=== PATIENT | male | born 1990 | race Caucasian/White ===

== ENCOUNTER 2016-02-24 12:38 | Emergency (ER) | payer OTHER ==
[2016-02-24 13:22] VITALS: BP 109/70
--- NOTE | 2016-02-24 13:30 | UC ---
Lower Extremity/Ankle HPI - HPI Summary HPI Summary: complaint of pain in all of his teeth in left upper and lower jaw that started approx 2 days ago pain is raditing into his left ear and neck popped a "cyst" in lower left jaw yesterday headache for several days not tkaing any medication for pain at this time states ibuprofen doesn't work for him denies fever and chills - History of Current Complaint Chief Complaint: UCDentalProblem Stated Complaint: DENTAL PAIN HEADACHE Time Seen by Provider: 02/24/16 13:23 - Allergies/Home Medications Allergies/Adverse Reactions: Allergies Allergy/AdvReac Type Severity Reaction Status Date / Time DEODORANTS Allergy Rash And Uncoded 02/24/16 13:18 Itching ONIONS Allergy THROAT Uncoded 02/24/16 13:18 ITCHING AND SWELLING PMH/Surg Hx/FS Hx/Imm Hx Previously Healthy: Yes Endocrine History Of: Denies: Diabetes Cardiovascular History Of: Denies: Hypertension, Pacemaker/ICD Respiratory History Of: Reports: Pneumonia - said had pneumonia when a child GI/ History Of: Denies: Renal Disease Psychological History Of: Reports: Anxiety, Depression Denies: Bipolar Disorder - Pt says was Dx bipolar in the past - Surgical History Surgical History: None - Family History Known Family History: Negative: Cardiac Disease, Hypertension, Diabetes - Social History Occupation: Unemployed Lives: With Family Alcohol Use: Daily Alcohol Amount: usually 1-2 beers/ mth. lately, 3-4 beers/day last 4 days, however Substance Use Type: Marijuana Substance Use Comment - Amount & Last Used: has 1-2 joints per day when available. Claims has not smoked MJ in last mon Smoking Status (MU): Current Every Day Smoker Type: Cigarettes Amount Used/How Often: 1/2 PPD Have You Smoked in the Last Year: Yes Household Exposure Type: Cigarettes Cessation Counseling: Patient Advised to Stop - Immunization History Most Recent Influenza Vaccination: "years ago" Most Recent Tetanus Shot: "when I was a child" Most Recent Pneumonia Vaccination: says never Review of Systems Constitutional: Negative, Fever Eyes: Negative ENT: Dental Pain Respiratory: Negative Cardiovascular: Negative Gastrointestinal: Negative Genitourinary: Negative Motor: Negative Neurovascular: Negative Musculoskeletal: Negative Neurological: Negative Psychological: Negative All Other Systems Reviewed And Are Negative: Yes Physical Exam Triage Information Reviewed: Yes Appearance: No Pain Distress, Well-Nourished Vital Signs: Initial Vital Signs Temp 98.8 F 02/24/16 13:18 Pulse 59 02/24/16 13:18 Resp 16 02/24/16 13:18 BP 109/70 02/24/16 13:18 Pulse Ox 100 02/24/16 13:18 Vital Signs Reviewed: Yes Eyes: Positive: Conjunctiva Clear ENT: Positive: Pharynx normal, TMs normal. Negative: Nasal congestion Dental: Positive: Gross Decay/Caries @ - throughout 17,18,19 with edema and erythema around bases Neck: Positive: No Lymphadenopathy Respiratory: Positive: Lungs clear, Normal breath sounds, No respiratory distress Cardiovascular: Positive: RRR, No Murmur, Pulses Normal Abdomen Description: Positive: Nontender, Soft Bowel Sounds: Positive: Present Musculoskeletal: Positive: No Edema Psychological Exam: Normal Skin Exam: Normal Lower Extremity Course/Dx - Differential Dx/Diagnosis Differential Diagnosis/HQI/PQRI: Other - dental abscess, dental caries, fractured tooth Provider Diagnoses: dental abscess Discharge - Discharge Plan Condition: Stable Disposition: HOME Prescriptions: Amoxicillin/Clavulanate TAB* [Augmentin TAB 875*] 875 mg PO BID #20 tab Naproxen TAB* [Naprosyn TAB*] 500 mg PO Q12H PRN #30 tab PRN Reason: Pain (Dental) Patient Education Materials: Dental Abscess (ED) Referrals: [facility] [Outside] Additional Instructions: Please take antibiotic as directed. call dentist so you can have your teeth removed or you will continue to have dental pain and abscesses in your mouth Increase fluids and rest Take acetaminophen or ibuprofen for fever or pain Please review your discharge instructions. If your symptoms do not improve please call your primary care provider or return to urgent care. DENTAL PAIN What Causes Dental Pain? Cavities (tooth decay) are the most common cause of dental pain. Cavities usually happen because of poor oral hygiene, causing bacteria to build up and form plaque. Plaque breaks down the tooth enamel and leads to cavities. If untreated, cavities can lead to tooth abscesses, gum disease, and, finally, loss of the tooth. Prevention of tooth decay is the best way to avoid toothaches. Symptoms Might Include: Aching or sharp pain in the tooth Sensitivity to hot or cold foods and fluids Pain, redness or swelling of the gums Swelling of the face or jaw Treatment Recommendations: Take acetaminophen (Tylenol?) or ibuprofen (Motrin, Advil?) for pain unless you have had a problem with one of the medicines in the past. The healthcare provider may have prescribed an antibiotic medicine. The medicine should be taken until it is completely gone, even if you are feeling better. If you stop taking the medicine early, the infection may not be completely gone, and the medication may not work the next time. If you are given a prescription for pain medicine (narcotics), do not drink, drive, or operate any kind of dangerous machinery while taking that medicine. Do not place pain-killing tablets on any aching tooth or gum it can cause severe booker on the gum. Call Your Doctor or Return Here IF: You start to have severe pain. You start to have swelling in your face or neck. You start to a have fever. You start to have difficulty speaking or swallowing. You have any other new symptoms that worry you.
== END 2016-02-24 14:00 | disposition home or self-care (01) ==
LOC: UCEAST 12:38
DX: J06.9 Acute upper respiratory infection, unspecified (principal); H69.90 Unspecified Eustachian tube disorder, unspecified ear
CPT/HCPCS: 99212; G0463

== ENCOUNTER 2017-03-19 21:47 | Emergency (ER) | payer OTHER ==
[2017-03-19 22:45] LABS: Hematocrit 47 % (42-52); Hemoglobin 16.2 g/dl (14.0-18.0); Mean Corpuscular HGB Conc 35 g/dl (31-36); Mean Corpuscular Hemoglobin 30 pg (27-31); Mean Corpuscular Volume 88 fL (80-94); Mean Platelet Volume 8 um3 (7.4-10.4); Platelet Count 217 10^3/ul (150-450); Red Blood Count 5.33 10^6/ul (4.0-5.4); Red Cell Distribution Width 13 % (10.5-15); White Blood Count 11.7 10^3/ul (3.5-10.8)
[2017-03-19 22:53] LABS: ABS Basophils 0 10^3/ul (0-0.2); ABS Eosinophils 0 10^3/ul (0-0.6); ABS Monocytes 0.7 10^3/ul (0-0.8); ABS Neutrophils 10.3 10^3/ul (1.5-7.7); ABS Nucleated RBC 0 10^3/ul; Eosinophil % 0.1 % (0-6); Lymphocyte % 8.1 % (25-47); Nucleated Red Blood Cells % 0
--- NOTE | 2017-03-19 23:25 | ED ---
Syncope/Near Syncope - HPI Summary HPI Summary: 27-year-old male presents with syncopal episode tonight. He states he was outside and had intense back pain and then passed out. He states he has not seen anything today. He states after passing out he developed chest pain and abdominal pain. He states the abdominal pain is generalized. He denies any nausea vomiting or diarrhea. He admits to a cough. He denies any bloody stools. He states the chest pain has been resolving. He denies any shortness of breath. He denies any family history of cardiac disease. He has multiple psych psych diagnosis. He has never passed out before. He is a smoker. He denies any fever. States the chest pain is in the center of the chest and is sharp. He states he has a history of back pain but said over the past day his back pain has intensified. He denies any numbness or tingling. He denies any pain down the leg. Denies any loss of bowel or bladder. He denies any saddle anesthesia. He has not taken anything for his pain. He has some superficial cuts on his left arm but he denies any suicidal or homicidal ideation. He states he believed he passed out due to pain. - History Of Current Complaint Chief Complaint: EDBackInjuryPain Time Seen by Provider: 03/19/17 22:29 - Allergies/Home Medications Allergies/Adverse Reactions: Allergies Allergy/AdvReac Type Severity Reaction Status Date / Time DEODORANTS Allergy Rash And Uncoded 02/24/16 13:18 Itching ONIONS Allergy THROAT Uncoded 02/24/16 13:18 ITCHING AND SWELLING PMH/Surg Hx/FS Hx/Imm Hx Endocrine/Hematology History: Denies: Hx Diabetes Cardiovascular History: Denies: Hx Hypertension, Hx Pacemaker/ICD Respiratory History: Reports: Hx Pneumonia - said had pneumonia when a child History: Denies: Hx Renal Disease Sensory History: Denies: Hx Hearing Aid, Hx Hearing Problem - states some hearing loss left ear due to childhood infection, Other Sensory Impairments Opthamlomology History: Denies: Other Sensory Impairments Psychiatric History: Reports: Hx Anxiety, Hx Depression, Hx Community Mental Health Tx, Hx Suicide Attempt, Other Psychiatric Issues/Disorders - 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 lately, 3-4 beers/day last 4 days, however Substance Use Type: Reports: Marijuana Substance Use Comment - Amount & Last Used: has 1-2 joints per day when available. Claims has not smoked MJ in last mon Smoking Status (MU): Current Every Day Smoker Type: Cigarettes Amount Used/How Often: 1/2 PPD Have You Smoked in the Last Year: Yes Review of Systems Negative: Fever Positive: Chest Pain Positive: Cough Positive: Abdominal Pain All Other Systems Reviewed And Are Negative: Yes Physical Exam Triage Information Reviewed: Yes Vital Signs On Initial Exam: Initial Vitals Temp Pulse Resp BP Pulse Ox 98.8 F 89 18 123/78 98 03/19/17 21:54 03/19/17 21:54 03/19/17 21:54 03/19/17 21:54 03/19/17 21:54 Vital Signs Reviewed: Yes Appearance: Positive: Well-Appearing Skin: Positive: Warm, Dry Head/Face: Positive: Normal Head/Face Inspection Eyes: Positive: Normal, EOMI, MANOJ, Conjunctiva Clear ENT: Positive: Normal ENT inspection, Pharynx normal, TMs normal Respiratory/Lung Sounds: Positive: Clear to Auscultation, Breath Sounds Present , Other - reproducible chest pain Cardiovascular: Positive: Normal, RRR Abdomen Description: Positive: Soft, Other: - mild diffuse tenderness Bowel Sounds: Positive: Present Musculoskeletal: Positive: Strength/ROM Intact - back, Other - midline tenderness lower back, neg SLR, Neurological: Positive: Sensory/Motor Intact, Alert, Oriented to Person Place, Time, CN Intact II-III - [place] Coma Scale Best Eye Response: 4 - Spontaneous Best Motor Response: 6 - Obeys Commands Best Verbal Response: 5 - Oriented Coma Scale Total: 15 Diagnostics - Vital Signs Vital Signs Temp Pulse Resp BP Pulse Ox 03/19/17 22:33 98 03/19/17 21:54 98.8 F 89 18 123/78 98 - Laboratory Lab Results: Lab Results 01/27/18 01/27/18 01/27/18 Range/Units 22:27 22:27 22:27 WBC 11.7 H (3.5-10.8) 10^3/ul RBC 5.33 (4.0-5.4) 10^6/ul Hgb 16.2 (14.0-18.0) g/dl Hct 47 (42-52) % MCV 88 (80-94) fL MCH 30 (27-31) pg MCHC 35 (31-36) g/dl RDW 13 (10.5-15) % Plt Count 217 (150-450) 10^3/ul MPV 8 (7.4-10.4) um3 Neut % (Auto) 86.0 H (38-83) % Lymph % (Auto) 8.1 L (25-47) % Mckinley % (Auto) 5.5 (1-9) % Eos % (Auto) 0.1 (0-6) % Baso % (Auto) 0.3 (0-2) % Absolute Neuts (auto) 10.3 H (1.5-7.7) 10^3/ul Absolute Lymphs (auto) 1.0 (1.0-4.8) 10^3/ul Absolute Monos (auto) 0.7 (0-0.8) 10^3/ul Absolute Eos (auto) 0 (0-0.6) 10^3/ul Absolute Basos (auto) 0 (0-0.2) 10^3/ul Absolute Nucleated RBC 0 10^3/ul Nucleated RBC % 0 D-Dimer, Quantitative (Less Than 230) ng/mL Sodium 137 (133-145) mmol/L Potassium 3.7 (3.5-5.0) mmol/L Chloride 103 (101-111) mmol/L Carbon Dioxide 25 (22-32) mmol/L Anion Gap 9 (2-11) mmol/L BUN 12 (6-24) mg/dL Creatinine 1.02 (0.67-1.17) mg/dL Est GFR ( Amer) 111.8 (>60) Est GFR (Non-Af Amer) 87.0 (>60) BUN/Creatinine Ratio 11.8 (8-20) Glucose 92 (70-100) mg/dL Lactic Acid 0.9 (0.5-2.0) mmol/L Calcium 9.5 (8.6-10.3) mg/dL Magnesium 2.3 (1.9-2.7) mg/dL Total Bilirubin 0.50 (0.2-1.0) mg/dL AST 23 (13-39) U/L ALT 33 (7-52) U/L Alkaline Phosphatase 90 (34-104) U/L Troponin I 0.00 (<0.04) ng/mL Total Protein 7.3 (6.4-8.9) g/dL Albumin 4.5 (3.2-5.2) g/dL Globulin 2.8 (2-4) g/dL Albumin/Globulin Ratio 1.6 (1-3) TSH Pending 03/19/17 Range/Units 22:27 WBC (3.5-10.8) 10^3/ul RBC (4.0-5.4) 10^6/ul Hgb (14.0-18.0) g/dl Hct (42-52) % MCV (80-94) fL MCH (27-31) pg MCHC (31-36) g/dl RDW (10.5-15) % Plt Count (150-450) 10^3/ul MPV (7.4-10.4) um3 Neut % (Auto) (38-83) % Lymph % (Auto) (25-47) % Mckinley % (Auto) (1-9) % Eos % (Auto) (0-6) % Baso % (Auto) (0-2) % Absolute Neuts (auto) (1.5-7.7) 10^3/ul Absolute Lymphs (auto) (1.0-4.8) 10^3/ul Absolute Monos (auto) (0-0.8) 10^3/ul Absolute Eos (auto) (0-0.6) 10^3/ul Absolute Basos (auto) (0-0.2) 10^3/ul Absolute Nucleated RBC 10^3/ul Nucleated RBC % D-Dimer, Quantitative < 200 (Less Than 230) ng/mL Sodium (133-145) mmol/L Potassium (3.5-5.0) mmol/L Chloride (101-111) mmol/L Carbon Dioxide (22-32) mmol/L Anion Gap (2-11) mmol/L BUN (6-24) mg/dL Creatinine (0.67-1.17) mg/dL Est GFR ( Amer) (>60) Est GFR (Non-Af Amer) (>60) BUN/Creatinine Ratio (8-20) Glucose (70-100) mg/dL Lactic Acid (0.5-2.0) mmol/L Calcium (8.6-10.3) mg/dL Magnesium (1.9-2.7) mg/dL Total Bilirubin (0.2-1.0) mg/dL AST (13-39) U/L ALT (7-52) U/L Alkaline Phosphatase (34-104) U/L Troponin I (<0.04) ng/mL Total Protein (6.4-8.9) g/dL Albumin (3.2-5.2) g/dL Globulin (2-4) g/dL Albumin/Globulin Ratio (1-3) TSH Result Diagrams: 03/19/17 22:27 03/19/17 22:27 Lab Statement: Any lab studies that have been ordered have been reviewed, and results considered in the medical decision making process. - CT back CT Interpretation: No Acute Changes - stable left lateral L5/S1 disc hernation which may be minimial abutting the descening left S1 nerve root CT Interpretation Completed By: Radiologist - EKG No standard instances Cardiac Rate: NL EKG Rhythm: Sinus Rhythm EKG Interpretation: sinus rythmn, early repolarization Course/Dx Course Of Treatment: 27-year-old male presents with syncopal episode tonight. He states he was outside and had intense back pain and then passed out. He states he has not seen anything today. He states after passing out he developed chest pain and abdominal pain. He states the abdominal pain is generalized. He denies any nausea vomiting or diarrhea. He denies any bloody stools. He states the chest pain has been resolving. He denies any shortness of breath. He denies any family history of cardiac disease. He has multiple psych psych diagnosis. He has never passed out before. He is a smoker. He denies any fever. States the chest pain is in the center of the chest and is sharp. He states he has a history of back pain but said over the past day his back pain has intensified. He denies any numbness or tingling. He denies any pain down the leg. Denies any loss of bowel or bladder. He denies any saddle anesthesia. He has not taken anything for his pain. He has some superficial cuts on his left arm but he denies any suicidal or homicidal ideation. He states he believed he passed out due to pain. On exam has reproducible chest pain. Lungs clear to auscultation. Back midline tenderness in lower back negative straight leg raise. Neurovascularly intact. EKG normal sinus rhythm. Troponin negative. D-dimer negative. White blood cell 11. flu neg. discussed chest pain and abdominal pain could be viral illness. will treat back pain with lidocaine patch. will have follow up with primary within 5 days. patient understand and agrees with plan. - Diagnoses Differential Diagnosis/HQI/PQRI: Positive: Hypoglycemia, Pulmonary Embolism, Vasovagal Episode Provider Diagnoses: Syncope, Back pain Discharge - Discharge Plan Condition: Good Disposition: HOME Prescriptions: Lidocaine PATCH 5%* [Lidoderm 5% Patch*] 1 patch TRANSDERM DAILY #5 patch Patient Education Materials: Syncope (ED), Back Pain (ED) Referrals: Joe Rasmussen DO [Primary Care Provider] - Additional Instructions: Apply lidocaine patches to area for up to 12 hours in one 24 hour period Use Tylenol for pain every 6 hours ice/heat area, move as much as possible Eat and drink throughout the day Follow up with primary within 5 days Return to ED if develop any new or worsening symptoms
[2017-03-20] MEDS ORDERED: Lidocaine PATCH 5%* 1 PATCH TRANSDERM ONE (00:24)
[2017-03-20 00:59] VITALS: BP 130/72
--- NOTE | 2017-03-20 07:52 | RAD ---
INDICATION: 27-year-old with back pain. History of degenerative disc disease L5-S1 ED request for CT of the lumbar spine. COMPARISON: Right lumbar spine September 29, 2015 TECHNIQUE: Noncontrast axial source images was performed from the thoracolumbar junction to the sacrum. Coronal and and sagittal reformatted images were generated. FINDINGS: Vertebrae: There is no fracture or acute focal bony lesion. Alignment: The lumbar vertebrae are normally aligned. Central Canal: The CT suggests a small left lateral disc herniation perhaps abutting the left S1 nerve root and better identified on the earlier MRI. There are no other identifiable CT abnormalities of the central canal or foramina. MR imaging is a more sensitive method to evaluate the canal and foramina. Intervertebral disc spaces: The disc spaces are maintained. Soft tissues: The paravertebral soft tissues are normal. Other: None IMPRESSION: STABLE SMALL LEFT LATERAL L5-S1 DISC HERNIATION.
== END 2017-03-20 00:57 | disposition home or self-care (01) ==
LOC: ED 21:47
DX: R55 Syncope and collapse (principal); R07.9 Chest pain, unspecified; R05 Cough; F17.210 Nicotine dependence, cigarettes, uncomplicated; R10.9 Unspecified abdominal pain; M54.9 Dorsalgia, unspecified
CPT/HCPCS: 36415; 72131; 80053; 83605; 83735; 84443; 84484; 85025; 85379; 87502; 93005; 99283; A9270-GY

== ENCOUNTER 2017-07-22 11:48 | Emergency (ER) | payer OTHER ==
[2017-07-22 13:27] LABS: ABS Basophils 0.1 10^3/ul (0-0.2); ABS Eosinophils 0.1 10^3/ul (0-0.6); ABS Lymphocytes 1.6 10^3/ul (1.0-4.8); ABS Monocytes 0.6 10^3/ul (0-0.8); ABS Neutrophils 4.3 10^3/ul (1.5-7.7); ABS Nucleated RBC 0 10^3/ul; Eosinophil % 1.4 % (0-6); Hematocrit 46 % (42-52); Hemoglobin 15.8 g/dl (14.0-18.0); Lymphocyte % 23.5 % (25-47); Mean Corpuscular HGB Conc 35 g/dl (31-36); Mean Corpuscular Hemoglobin 30 pg (27-31); Mean Corpuscular Volume 87 fL (80-94); Mean Platelet Volume 8.3 um3 (7.4-10.4); Nucleated Red Blood Cells % 0.1; Platelet Count 241 10^3/ul (150-450); Red Blood Count 5.26 10^6/ul (4.0-5.4); Red Cell Distribution Width 13 % (10.5-15); White Blood Count 6.7 10^3/ul (3.5-10.8)
[2017-07-22 13:51] LABS: EGFR Non-African American 93.3 (>60)
[2017-07-22 15:30] LABS: Urine Appearance Clear; Urine Blood Negative (Negative); Urine Color Yellow; Urine Ketones Negative (Negative); Urine Protein Negative (Negative); Urine Specific Gravity 1.017 (1.010-1.030); Urine Urobilinogen Negative (Negative)
[2017-07-22 16:07] VITALS: BP 129/70
--- NOTE | 2017-07-22 18:38 | ED ---
Aydee Odonnell Emily, scribed for Michael Presley MD on 07/22/17 at 1310 . Abdominal Pain/Male - HPI Summary HPI Summary: This patient is a 27 year old M presenting to [facility] accompanied by family with a chief complaint of LLQ abd pain radiating to the back that began yesterday. Pt reports the pain beginning suddenly after eating a hamburger. The patient rates the pain 3/10 in severity. Symptoms aggravated by movement. Symptoms alleviated by nothing. Patient denies urinary symptoms and nausea. - History of Current Complaint Chief Complaint: EDAbdPain Stated Complaint: ABD/BACK PAIN Time Seen by Provider: 07/22/17 12:22 Hx Obtained From: Patient Onset/Duration: Sudden Onset, Lasting Days, Still Present Timing: Constant Severity Initially: Mild Severity Currently: Mild Pain Intensity: 3 Pain Scale Used: 0-10 Numeric Location: Discrete At: LLQ Radiates: Yes Radiates to: Back Aggravating Factor(s): Nothing, Movement Alleviating Factor(s): Nothing Associated Signs And Symptoms: Positive: Other - Negative urinary symptoms. Negative: Nausea - Allergies/Home Medications Allergies/Adverse Reactions: Allergies Allergy/AdvReac Type Severity Reaction Status Date / Time DEODORANTS Allergy Rash And Uncoded 07/22/17 12:04 Itching ONIONS Allergy THROAT Uncoded 07/22/17 12:04 ITCHING AND SWELLING Home Medications: Home Medications NK [No Home Medications Reported] 07/22/17 [History Confirmed 07/22/17] PMH/Surg Hx/FS Hx/Imm Hx Previously Healthy: No Endocrine/Hematology History: Denies: Hx Diabetes Cardiovascular History: Denies: Hx Hypertension, Hx Pacemaker/ICD Respiratory History: Reports: Hx Pneumonia - said had pneumonia when a child History: Denies: Hx Renal Disease Sensory History: Denies: Hx Hearing Aid, Hx Hearing Problem - states some hearing loss left ear due to childhood infection, Other Sensory Impairments Opthamlomology History: Denies: Other Sensory Impairments Psychiatric History: Reports: Hx Anxiety, Hx Depression, Hx Community Mental Health Tx, Hx Suicide Attempt, Other Psychiatric Issues/Disorders - 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 lately, 3-4 beers/day last 4 days, however Substance Use Type: Reports: Marijuana Substance Use Comment - Amount & Last Used: has 1-2 joints per day when available. Claims has not smoked MJ in last mon Smoking Status (MU): Current Every Day Smoker Type: Cigarettes Amount Used/How Often: 1/2 PPD Have You Smoked in the Last Year: Yes Review of Systems Positive: Abdominal Pain. Negative: Nausea Positive: no symptoms reported All Other Systems Reviewed And Are Negative: Yes Physical Exam - Summary Physical Exam Summary: Appearance: The patient is well-nourished in no acute distress and in no acute pain. Skin: The skin is warm and dry and skin color reflects adequate perfusion. HEENT: The head is normocephalic and atraumatic. The pupils are equal and reactive. The conjunctivae are clear and without drainage. Nares are patent and without drainage. Mouth reveals moist mucous membranes and the throat is without erythema and exudate. The external ears are intact. The ear canals are patent and without drainage. The tympanic membranes are intact. Dental: Poor dentition. Neck: the neck is supple with full range of motion and non-tender. There are no carotid bruits. There is no neck vein distension. Respiratory: Chest is non-tender. Lungs are clear to auscultation and breath sounds are symmetrical and equal. Cardiovascular: Heart is regular rate and rhythm. There is no murmur or rub auscultated. There is no peripheral edema and pulses are symmetrical and equal. Abdomen: The abdomen is soft. Diffuse lower abdominal tenderness. There are normal bowel sounds heard in all four quadrants and there is no organomegaly palpated. Musculoskeletal: There is no back tenderness noted. Extremities are non-tender with full range of motion. There is good capillary refill. There is no peripheral edema or calf tenderness elicited. Neurological: Patient is alert and oriented to person, place and time. The patient has symmetrical motor strength in all four extremities. Cranial nerves are grossly intact. Deep tendon reflexes are symmetrical and equal in all four extremities. Psychiatric: The patient has an appropriate affect and does not exhibit any anxiety or depression. Triage Information Reviewed: Yes Vital Signs On Initial Exam: Initial Vitals Temp Pulse Resp BP Pulse Ox 98.1 F 69 12 127/64 98 07/22/17 11:58 07/22/17 11:58 07/22/17 11:58 07/22/17 11:58 07/22/17 11:58 Vital Signs Reviewed: Yes Diagnostics - Vital Signs Vital Signs Temp Pulse Resp BP Pulse Ox 07/22/17 11:58 98.1 F 69 12 127/64 98 - Laboratory Lab Results: Lab Results 07/22/17 07/22/17 07/22/17 Range/Units 13:00 13:00 13:00 WBC 6.7 (3.5-10.8) 10^3/ul RBC 5.26 (4.0-5.4) 10^6/ul Hgb 15.8 (14.0-18.0) g/dl Hct 46 (42-52) % MCV 87 (80-94) fL MCH 30 (27-31) pg MCHC 35 (31-36) g/dl RDW 13 (10.5-15) % Plt Count 241 (150-450) 10^3/ul MPV 8.3 (7.4-10.4) um3 Neut % (Auto) 65.1 (38-83) % Lymph % (Auto) 23.5 L (25-47) % Dickenson % (Auto) 8.9 H (0-7) % Eos % (Auto) 1.4 (0-6) % Baso % (Auto) 1.1 (0-2) % Absolute Neuts (auto) 4.3 (1.5-7.7) 10^3/ul Absolute Lymphs (auto) 1.6 (1.0-4.8) 10^3/ul Absolute Monos (auto) 0.6 (0-0.8) 10^3/ul Absolute Eos (auto) 0.1 (0-0.6) 10^3/ul Absolute Basos (auto) 0.1 (0-0.2) 10^3/ul Absolute Nucleated RBC 0 10^3/ul Nucleated RBC % 0.1 Sodium 141 (139-145) mmol/L Potassium 3.5 (3.5-5.0) mmol/L Chloride 107 (101-111) mmol/L Carbon Dioxide 26 (22-32) mmol/L Anion Gap 8 (2-11) mmol/L BUN 8 (6-24) mg/dL Creatinine 0.96 (0.67-1.17) mg/dL Est GFR ( Amer) 119.9 (>60) Est GFR (Non-Af Amer) 93.3 (>60) BUN/Creatinine Ratio 8.3 (8-20) Glucose 92 (70-100) mg/dL Lactic Acid 1.0 (0.5-2.0) mmol/L Calcium 9.3 (8.6-10.3) mg/dL Total Bilirubin 0.50 (0.2-1.0) mg/dL AST 23 (13-39) U/L ALT 27 (7-52) U/L Alkaline Phosphatase 81 (34-104) U/L C-Reactive Protein 4.88 (< 5.00) mg/L Total Protein 7.0 (6.4-8.9) g/dL Albumin 4.3 (3.2-5.2) g/dL Globulin 2.7 (2-4) g/dL Albumin/Globulin Ratio 1.6 (1-3) Lipase 31 (11.0-82.0) U/L Urine Color Urine Appearance Urine pH (5-9) Ur Specific [place] (1.010-1.030) Urine Protein (Negative) Urine Ketones (Negative) Urine Blood (Negative) Urine Nitrate (Negative) Urine Bilirubin (Negative) Urine Urobilinogen (Negative) Ur Leukocyte Esterase (Negative) Urine Glucose (Negative) 07/22/17 Range/Units 15:18 WBC (3.5-10.8) 10^3/ul RBC (4.0-5.4) 10^6/ul Hgb (14.0-18.0) g/dl Hct (42-52) % MCV (80-94) fL MCH (27-31) pg MCHC (31-36) g/dl RDW (10.5-15) % Plt Count (150-450) 10^3/ul MPV (7.4-10.4) um3 Neut % (Auto) (38-83) % Lymph % (Auto) (25-47) % Dickenson % (Auto) (0-7) % Eos % (Auto) (0-6) % Baso % (Auto) (0-2) % Absolute Neuts (auto) (1.5-7.7) 10^3/ul Absolute Lymphs (auto) (1.0-4.8) 10^3/ul Absolute Monos (auto) (0-0.8) 10^3/ul Absolute Eos (auto) (0-0.6) 10^3/ul Absolute Basos (auto) (0-0.2) 10^3/ul Absolute Nucleated RBC 10^3/ul Nucleated RBC % Sodium (139-145) mmol/L Potassium (3.5-5.0) mmol/L Chloride (101-111) mmol/L Carbon Dioxide (22-32) mmol/L Anion Gap (2-11) mmol/L BUN (6-24) mg/dL Creatinine (0.67-1.17) mg/dL Est GFR ( Amer) (>60) Est GFR (Non-Af Amer) (>60) BUN/Creatinine Ratio (8-20) Glucose (70-100) mg/dL Lactic Acid (0.5-2.0) mmol/L Calcium (8.6-10.3) mg/dL Total Bilirubin (0.2-1.0) mg/dL AST (13-39) U/L ALT (7-52) U/L Alkaline Phosphatase (34-104) U/L C-Reactive Protein (< 5.00) mg/L Total Protein (6.4-8.9) g/dL Albumin (3.2-5.2) g/dL Globulin (2-4) g/dL Albumin/Globulin Ratio (1-3) Lipase (11.0-82.0) U/L Urine Color Yellow Urine Appearance Clear Urine pH 6.0 (5-9) Ur Specific [place] 1.017 (1.010-1.030) Urine Protein Negative (Negative) Urine Ketones Negative (Negative) Urine Blood Negative (Negative) Urine Nitrate Negative (Negative) Urine Bilirubin Negative (Negative) Urine Urobilinogen Negative (Negative) Ur Leukocyte Esterase Negative (Negative) Urine Glucose Negative (Negative) Result Diagrams: 07/22/17 13:00 07/22/17 13:00 Lab Statement: Any lab studies that have been ordered have been reviewed, and results considered in the medical decision making process. Re-Evaluation - Re-Evaluation First Eval Re-Evaluation Time: 16:17 Change: Improved Abdominal Pain Fem Course/Dx - Course Course Of Treatment: On arrival Mr. Omer complained of low abdominal pain and was mildly tender in his bilateral lower quadrants. He essentially had no other symptomatology or signs and labs were obtained which were negative for any leukocytosis or other abnormality. He felt much improved at that point and he was given the option of getting a CT scan at this time or going home and treating this conservatively with observation. He chose to go home at this time and will return if he has any further symptoms or any increase in his pain. - Diagnoses Provider Diagnoses: Abdominal pain Discharge - Sign-Out/Discharge Documenting (check all that apply): Discharge/Admit/Transfer - Discharge home - Discharge Plan Condition: Stable Disposition: HOME Patient Education Materials: Acute Abdominal Pain (ED) Referrals: Joe Rasmussen DO [Primary Care Provider] - 3 Days Additional Instructions: RETURN TO THE EMERGENCY DEPARTMENT FOR NEW OR WORSENING SYMPTOMS - Billing Disposition and Condition Condition: STABLE Disposition: HOME The documentation as recorded by the Aydee dela cruz Emily accurately reflects the service I personally performed and the decisions made by me, Michael Presley MD.
== END 2017-07-22 16:42 | disposition home or self-care (01) ==
LOC: ED 11:48
DX: R10.32 Left lower quadrant pain (principal); F17.210 Nicotine dependence, cigarettes, uncomplicated
CPT/HCPCS: 36415; 80053; 81003; 83605; 83690; 85025; 86140; 99283

== ENCOUNTER 2017-12-06 21:47 | Emergency (ER) | payer SELFPAY ==
[2017-12-06 22:02] VITALS: BP 116/78
[2017-12-06] MEDS ORDERED: Ibuprofen TAB* 600 MG PO ONE (22:22)
--- NOTE | 2017-12-06 22:27 | UC ---
Back Pain HPI - HPI Summary HPI Summary: 27 yo gentleman c/o sudden onset back pain associated with a "pop" sensation. 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 [place] pain radiate down lateral thighs, with associated tingling. No b/b leakage, nor known b/b problems but has not tried to urinate since event. Has hx lumbar disc herniation L5-S1, most recent CT Feb 2017. Reports that current pain is similar to herniated disc pain, but higher up. No GI issues. No recent illness, no fever. No sob / cp. Able to walk but hurts to bend in any direction, shaista forward. - History of Current Complaint Chief Complaint: UCBackPain Stated Complaint: BACK INJURY Time Seen by Provider: 12/06/17 22:00 Hx Obtained From: Patient Pain Intensity: 6 - Allergies/Home Medications Allergies/Adverse Reactions: Allergies Allergy/AdvReac Type Severity Reaction Status Date / Time DEODORANTS Allergy Rash And Uncoded 12/06/17 22:01 Itching ONIONS Allergy THROAT Uncoded 12/06/17 22:01 ITCHING AND SWELLING PMH/Surg Hx/FS Hx/Imm Hx Previously Healthy: Yes - Surgical History Surgical History: None - Family History Known Family History: Negative: Cardiac Disease, Hypertension, Diabetes - Social History Alcohol Use: Occasionally Alcohol Amount: usually 1-2 beers/ mth. lately, 3-4 beers/day last 4 days, however Substance Use Type: Marijuana Substance Use Comment - Amount & Last Used: has 1-2 joints per day when available. Claims has not smoked MJ in last tue Smoking Status (MU): Current Every Day Smoker Type: Cigarettes Amount Used/How Often: 1/2 PPD Have You Smoked in the Last Year: Yes Household Exposure Type: Cigarettes - Immunization History Most Recent Influenza Vaccination: "years ago" Most Recent Tetanus Shot: "when I was a child" Most Recent Pneumonia Vaccination: says never Review of Systems Constitutional: Negative Skin: Negative Eyes: Negative ENT: Negative Respiratory: Negative Cardiovascular: Negative Gastrointestinal: Negative Genitourinary: Negative - see hpi Motor: Other - see hpi Neurovascular: Other - see hpi Musculoskeletal: Arthralgia, Myalgia Neurological: Other - see hpi Psychological: Negative Is Patient Immunocompromised?: No All Other Systems Reviewed And Are Negative: Yes Physical Exam Triage Information Reviewed: Yes Appearance: Thin Vital Signs: Initial Vital Signs Temp 98.6 F 12/06/17 21:55 Pulse 79 12/06/17 21:55 Resp 16 12/06/17 21:55 BP 116/78 12/06/17 21:55 Pulse Ox 100 12/06/17 21:55 Vital Signs Reviewed: Yes Eye Exam: Normal ENT Exam: Normal Neck exam: Normal Respiratory Exam: Normal Respiratory: Positive: Chest non-tender, Lungs clear, Normal breath sounds, No respiratory distress, No accessory muscle use Cardiovascular Exam: Normal Cardiovascular: Positive: RRR, No Murmur, Pulses Normal, Brisk Capillary Refill Abdominal Exam: Normal Abdomen Description: Positive: Nontender Neurological Exam: Normal - conversing easily and appropriately. NAD. facial expressions symmetric. CN grossly intact. Moves x 4 ext, gait steady. Uncomfortable with movement as described in HPI. Distal sensation BLE present to LT. R/BR reflexes 2+, pat 1+ bilat, without appreciable clonus. Strength good BLE, including great toe. Neurological: Positive: Alert Psychological Exam: Normal - conversing easily and appropriately Skin Exam: Normal - no visible or reported rash Back Pain Course/Dx - Course Course Of Treatment: Reviewed prior imaging studies low back as available in [facility], part Feb 2017. Recommnend go to ED for further evaluation (CT imaging currently n/a here). He agrees to go, however wishes to drive. He reports that he feels ok to drive, indeed drove himself here. He will go to ED after taking his girlfriend home from work. Declines ketoralac, does want ibuprofen, administered here. Questions as posed answered to the best of my ability. Diff dx includes new disc herniation, back strain / sprain. - Differential Dx/Diagnosis Provider Diagnoses: Acute low back injury. See above. Discharge - Sign-Out/Discharge Documenting (check all that apply): Patient Departure All imaging exams completed and their final reports reviewed: No - Discharge Plan Condition: Stable Disposition: HOME-RECOMMEND TO ED Patient Education Materials: Lumbar Disc Herniation (ED), Low Back Strain (ED) Referrals: Joe Rasmussen DO [Primary Care Provider] - Additional Instructions: Recommend that you go to the Emergency Department for further evaluation. Call 911 if worse or new problems in the meantime. Be sure to follow up with your primary care physician, please call tomorrow to advise of your condition and schedule appointment. - Billing Disposition and Condition Condition: STABLE Disposition: Home-Recommend to ED
--- NOTE | 2017-12-07 12:31 | UC ---
- Progress Note Progress Note: No studies Discharge - Sign-Out/Discharge Documenting (check all that apply): Post-Discharge Follow Up All imaging exams completed and their final reports reviewed: No Studies - Discharge Plan Condition: Stable Disposition: HOME-RECOMMEND TO ED Patient Education Materials: Lumbar Disc Herniation (ED), Low Back Strain (ED) Referrals: Joe Rasmussen DO [Primary Care Provider] - Additional Instructions: Recommend that you go to the Emergency Department for further evaluation. Call 911 if worse or new problems in the meantime. Be sure to follow up with your primary care physician, please call tomorrow to advise of your condition and schedule appointment. - Billing Disposition and Condition Condition: STABLE Disposition: Home-Recommend to ED
== END 2017-12-06 22:30 | disposition home health service (06) ==
LOC: UCEAST 21:47
DX: S39.92XA Unspecified injury of lower back, initial encounter (principal); X50.0XXA Overexertion from strenuous movement or load, initial encounter; Y92.9 Unspecified place or not applicable; Y99.0 Civilian activity done for income or pay; F17.210 Nicotine dependence, cigarettes, uncomplicated
CPT/HCPCS: 99212; A9270-GY; G0463

== ENCOUNTER 2018-01-08 12:18 | Emergency (ER) | payer OTHER ==
[2018-01-08 12:33] VITALS: BP 121/58
--- NOTE | 2018-01-08 12:56 | UC ---
Throat Pain/Nasal Buck HPI - HPI Summary HPI Summary: Patient is 27 year old gentleman , without any significant past medical history who present today with cough for past 3 weeks. Initially he felt that his symptoms were getting better but then his cough became more productive with production of yellow-green phlegm. And now he began to have a sore throat few days ago. Reports that it hurts to swallow . Denies any fever,chest pain or shortness of breath . No diaphoresis. Denies any abdominal pain , nausea or vomiting , diarrhea or constipation. - History of Current Complaint Chief Complaint: UCRespiratory Stated Complaint: THROAT PAIN Time Seen by Provider: 01/08/18 12:50 Hx Obtained From: Patient Pain Intensity: 5 - Allergies/Home Medications Allergies/Adverse Reactions: Allergies Allergy/AdvReac Type Severity Reaction Status Date / Time DEODORANTS Allergy Rash And Uncoded 01/08/18 12:33 Itching ONIONS Allergy THROAT Uncoded 01/08/18 12:33 ITCHING AND SWELLING PMH/Surg Hx/FS Hx/Imm Hx - Additional Past Medical History Additional PMH: No significant past medical history - Surgical History Surgical History: None - Family History Known Family History: Negative: Cardiac Disease, Hypertension, Diabetes - Social History Alcohol Use: Occasionally Alcohol Amount: usually 1-2 beers/ mth. lately, 3-4 beers/day last 4 days, however Substance Use Type: Marijuana Substance Use Comment - Amount & Last Used: weekly Smoking Status (MU): Light Every Day Tobacco Smoker Type: Cigarettes Amount Used/How Often: 1/2 PPD Have You Smoked in the Last Year: Yes Household Exposure Type: Cigarettes - Immunization History Most Recent Influenza Vaccination: "years ago" Most Recent Tetanus Shot: "when I was a child" Most Recent Pneumonia Vaccination: says never Review of Systems All Other Systems Reviewed And Are Negative: Yes Constitutional: Positive: Negative Skin: Positive: Negative Eyes: Positive: Negative ENT: Positive: Sore Throat Respiratory: Positive: Cough - Productive of yellow-green phlegm Cardiovascular: Positive: Negative Gastrointestinal: Positive: Negative Genitourinary: Positive: Negative Motor: Positive: Negative Neurovascular: Positive: Negative Musculoskeletal: Positive: Negative Neurological: Positive: Negative Psychological: Positive: Negative Is Patient Immunocompromised?: No Physical Exam - Summary Physical Exam Summary: Physical Exam: Const: Appears well. No signs of apparent distress present. Alert and oriented x 3. Musculo: Walks with a normal gait. Head/Face: Atraumatic, normocephalic on inspection. Eyes: EOMI and PERRLA in both eyes. Conjunctivae clear. No discharge noted ENT: Pharyngeal erythema without any significant exudates . Tender lymph nodes in the anterior cervical area Hearing normal, TM normal appearing bilaterally . Respiratory: Respirations are unlabored. Lungs clear to auscultation bilaterally, no wheezing , rhonchi or rales noted . CVS: Regular rate and Rhythm, S1S2 normal , no murmurs identified. Extremities: Peripheral circulation is grossly normal. Pulses 2+ Abdomen : Soft non tender , nondistended , Bowel sounds present . No guarding , rebound tenderness or rigidity noted. Skin: No lesions or rash located on the upper extremities or on the lower extremities. Neuro: Cranial nerves II to XII intact, motor and sensory intact. DTR Intact bilaterally. Mood is normal. Affect is normal. Triage Information Reviewed: Yes Vital Signs: Initial Vital Signs Temp 97.9 F 01/08/18 12:29 Pulse 85 01/08/18 12:29 Resp 18 01/08/18 12:29 BP 121/58 01/08/18 12:29 Pulse Ox 99 01/08/18 12:29 Vital Signs Reviewed: Yes Throat Pain/Nasal Course/Dx - Course Course Of Treatment: During the visit today, we discussed the findings and further plan to treat it as an atypical pneumonia . I will prescribe the medication to the pharmacy . Patient expressed understanding . - Differential Dx/Diagnosis Provider Diagnoses: Atypical pneumonia. Pharyngitis Discharge - Sign-Out/Discharge Documenting (check all that apply): Patient Departure All imaging exams completed and their final reports reviewed: No Studies - Discharge Plan Condition: Stable Disposition: HOME Prescriptions: Azithromyxin HOSSEIN (NF) [Z-Hossein (Zithromax) 250 mg tabs #6] 2 tab PO .TODAY, THEN 1 DAILY #6 tab Patient Education Materials: Pneumonia (ED) Referrals: Joe Rasmussen DO [Primary Care Provider] - 1 Week Additional Instructions: Please start taking the medication as prescribed to the pharmacy . Follow up with your primary care doctor in 1 week Return to Urgent care / ER if symptoms get worse. - Billing Disposition and Condition Condition: STABLE Disposition: Home
== END 2018-01-08 13:12 | disposition home or self-care (01) ==
LOC: UCEAST 12:18
DX: J18.9 Pneumonia, unspecified organism (principal); J02.9 Acute pharyngitis, unspecified; F17.210 Nicotine dependence, cigarettes, uncomplicated; Z91.018 Allergy to other foods; Z91.048 Other nonmedicinal substance allergy status
CPT/HCPCS: 99212; G0463

== ENCOUNTER 2018-03-09 19:30 | Emergency (ER) | payer OTHER ==
[2018-03-09 19:40] VITALS: BP 117/80
--- NOTE | 2018-03-09 20:02 | ED ---
Upper Extremity Pain - HPI Summary HPI Summary: punched a refrigerator yesterday, and a wall a few weeks ago. now with persistent swelling and pain over the right third MCP joint - History of Current Complaint Chief Complaint: UCUpperExtremity Stated Complaint: HAND INJURY Time Seen by Provider: 03/09/18 19:34 Hx Obtained From: Patient Mechanism Of Injury: Blunt Trauma Onset/Duration: Started Weeks Ago Severity Initially: Moderate Severity Currently: Moderate Pain Location: Hand Character: Dull, Throbbing Aggravating Factor(s): Movement Alleviating Factor(s): Rest, Ice - Allergies/Home Medications Allergies/Adverse Reactions: Allergies Allergy/AdvReac Type Severity Reaction Status Date / Time DEODORANTS Allergy Rash And Uncoded 03/09/18 19:40 Itching ONIONS Allergy THROAT Uncoded 03/09/18 19:40 ITCHING AND SWELLING Home Medications: Home Medications NK [No Home Medications Reported] 03/09/18 [History Confirmed 03/09/18] PMH/Surg Hx/FS Hx/Imm Hx Previously Healthy: Yes Endocrine/Hematology History: Denies: Hx Diabetes Cardiovascular History: Denies: Hx Hypertension, Hx Pacemaker/ICD Respiratory History: Reports: Hx Pneumonia - said had pneumonia when a child History: Denies: Hx Renal Disease Sensory History: Denies: Hx Hearing Aid, Hx Hearing Problem - states some hearing loss left ear due to childhood infection, Other Sensory Impairments Opthamlomology History: Denies: Other Sensory Impairments Psychiatric History: Reports: Hx Anxiety, Hx Depression, Hx Community Mental Health Tx, Hx Suicide Attempt, Other Psychiatric Issues/Disorders - 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 Denies: Hx Eating Disorder, Hx Panic Disorder, Hx Bipolar Disorder - Pt says was Dx bipolar in the past, Hx of Violent Episodes Against Others Infectious Disease History: Yes Infectious Disease History: Reports: Hx Shingles Denies: History Other Infectious Disease, Traveled Outside the [place] in Last 30 Days - Family History Known Family History: Negative: Cardiac Disease, Hypertension, Diabetes - Social History Alcohol Use: Occasionally Alcohol Amount: 3-4 BEERS/DAY Substance Use Type: Reports: None Substance Use Comment - Amount & Last Used: weekly Smoking Status (MU): Current Every Day Smoker Type: Cigarettes Amount Used/How Often: 8-9 CIG/DAY Have You Smoked in the Last Year: Yes Review of Systems - ROS Summary Review of Systems Summary: hx. of alcohol abuse Constitutional: Negative Eyes: Negative ENT: Negative All Other Systems Reviewed And Are Negative: Yes Physical Exam Vital Signs On Initial Exam: Initial Vitals Temp Pulse Resp BP Pulse Ox 36.4 C 63 16 117/80 100 03/09/18 19:34 03/09/18 19:34 03/09/18 19:34 03/09/18 19:34 03/09/18 19:34 Diagnostics - Vital Signs Vital Signs Temp Pulse Resp BP Pulse Ox 03/09/18 19:34 36.4 C 63 16 117/80 100 - Laboratory Lab Statement: Any lab studies that have been ordered have been reviewed, and results considered in the medical decision making process. Course/Dx - Diagnoses Provider Diagnoses: Sprain of MCP joint of hand Discharge - Sign-Out/Discharge Documenting (check all that apply): Patient Departure All imaging exams completed and their final reports reviewed: Yes - Discharge Plan Condition: Fair Disposition: HOME Patient Education Materials: Finger Sprain (ED) Referrals: No Primary Care Phys,NOPCP [Primary Care Provider] - - Billing Disposition and Condition Condition: FAIR Disposition: Home
== END 2018-03-09 20:20 | disposition home or self-care (01) ==
LOC: UCEAST 19:30
DX: S63.8X1A Sprain of other part of right wrist and hand, initial encounter (principal); W22.09XA Striking against other stationary object, initial encounter; Y92.9 Unspecified place or not applicable; F17.210 Nicotine dependence, cigarettes, uncomplicated
CPT/HCPCS: 99212; G0463